=== PATIENT | male | born 1935 | race Caucasian/White ===

== ENCOUNTER 2023-05-17 10:33 | Outpatient (CLI) | payer MEDICARE | END 2023-05-17 10:34 | disposition home or self-care (01) | LOC: CSHRAD 10:33 | PROVIDERS: ATTEND Neurological Surgery | DX: M48.56XD Collapsed vertebra, not elsewhere classified, lumbar region, subsequent encounter for fracture with routine healing (principal) | CPT/HCPCS: 72100 ==